=== PATIENT | male | born 1935 | race Caucasian/White ===

== ENCOUNTER 2019-04-21 09:23 | Inpatient (IN) ==
[2019-04-21] MEDS ORDERED: Isovue-370 500 ML BOTTLE IVP ONE (09:50)
[2019-04-21 10:27] LABS: Basophils % 0.5 %; Eosinophils # 0.1 K/mcL (0.0-0.6); Eosinophils % 1.3 %; Hematocrit 45.3 % (37.5-50.1); Hemoglobin 15.1 g/dL (12.9-16.9); Immature Granulocytes % 0.2 % (0-4); Immature Platelets 5.7 % (1.1-6.1); Lymphocytes # 1.3 K/mcL (0.6-4.6); Lymphocytes % 21.9 %; Mean Corpuscular HGB Conc 33.3 g/dL (31.6-35.5); Mean Corpuscular Hemoglobin 31.9 pg (28.0-33.3); Mean Corpuscular Volume 95.8 fL (83.0-100.0); Mean Platelet Volume 10.8 fL (9.4-12.4); Monocytes # 0.5 K/mcL (0.0-1.3); Monocytes % 7.9 %; Platelet Count 117 K/mcL (140-400); Red Blood Count 4.73 M/mcL (4.19-5.50); Segmented Neutrophils % 68.2 %; White Blood Count 5.9 K/mcL (4.3-11.1)
[2019-04-21 10:45] LABS: Alanine Aminotransferase 11 Units/L (7-52); Albumin 3.8 g/dL (3.5-5.7); Albumin/Globulin Ratio 1.5 (1.1-2.2); Alkaline Phosphatase 72 Units/L (34-104); Aspartate Amino Transferase 17 Units/L (13-39); BUN/Creatinine Ratio 18 (6-26); Bilirubin,Total 0.8 mg/dL (0.3-1.0); Blood Urea Nitrogen 22 mg/dL (8-23); Calcium 8.7 mg/dL (8.6-10.3); Carbon Dioxide 24 mEq/L (23-29); Chloride 108 mEq/L (98-107); Globulin 2.6 g/dL (2.4-3.5); Glucose 125 mg/dL (70-105); Osmolality,Calculated 289 (280-300); Potassium 4.4 mEq/L (3.5-5.1); Sodium 137 mEq/L (136-145); Total Protein 6.4 g/dL (6.4-8.9); Troponin I < 0.03 ng/mL (< 0.04); eGFR For African Americans > 60 (> 60); eGFR For Non-African Americans 57 (> 60)
[2019-04-21] MEDS ORDERED: Naloxone 0.4 MG/ML INJ IVP PRN (14:59)
[2019-04-21] MEDS ORDERED: *HR* Heparin 5,000 UNIT/ML VIAL IVP PRN ×2 (17:18)
[2019-04-21] MEDS ORDERED: *HR* Heparin 5,000 UNIT/ML VIAL IVP ONE (17:18)
[2019-04-21] MEDS ORDERED: *HR* Heparin 5,000 UNIT/ML VIAL SQ SCH (18:00)
[2019-04-21 18:24] LABS: Hematocrit 47.6 % (37.5-50.1); Hemoglobin 15.7 g/dL (12.9-16.9); Immature Platelets 6.8 % (1.1-6.1); Mean Corpuscular Hemoglobin 31.8 pg (28.0-33.3); Mean Corpuscular Volume 96.6 fL (83.0-100.0); Mean Platelet Volume 11.2 fL (9.4-12.4); Red Blood Count 4.93 M/mcL (4.19-5.50); Red Cell Distribution Width 12.2 % (11.5-14.5); White Blood Count 7.4 K/mcL (4.3-11.1)
[2019-04-21 18:33] LABS: Heparin anti-factor XA UFH < 0.04 IU/mL (0.30-0.70); INR 1.1; Prothrombin Time 12.5 Seconds (9.4-12.1)
[2019-04-21] MEDS: Heparin 25,000 UNIT/250 ML D5W 25,000 UNIT/250 ML IV.SOLN IVC SCH (20:40)
[2019-04-21] MEDS: Gabapentin 300 MG CAPSULE PO SCH (20:41)
[2019-04-22] MEDS ORDERED: Ondansetron 4 MG/2 ML VIAL IVP ONE (02:43)
[2019-04-22 03:13] LABS: Red Cell Distribution Width 12.2 % (11.5-14.5)
[2019-04-22 03:15] LABS: Hematocrit 49.1 % (37.5-50.1); Hemoglobin 16.6 g/dL (12.9-16.9); Immature Platelets 6.2 % (1.1-6.1); Mean Corpuscular HGB Conc 33.8 g/dL (31.6-35.5); Mean Corpuscular Hemoglobin 32.2 pg (28.0-33.3); Mean Corpuscular Volume 95.3 fL (83.0-100.0); Mean Platelet Volume 11.1 fL (9.4-12.4); Red Blood Count 5.15 M/mcL (4.19-5.50)
[2019-04-22 03:33] LABS: BUN/Creatinine Ratio 19 (6-26); Blood Urea Nitrogen 24 mg/dL (8-23); Calcium 8.9 mg/dL (8.6-10.3); Carbon Dioxide 22 mEq/L (23-29); Chloride 109 mEq/L (98-107); Glucose 83 mg/dL (70-105); Osmolality,Calculated 291 (280-300); Potassium 4.1 mEq/L (3.5-5.1); Sodium 139 mEq/L (136-145); eGFR For African Americans > 60 (> 60); eGFR For Non-African Americans 54 (> 60)
[2019-04-22] MEDS ORDERED: Isosorbide MONOnitrate (24 HR) 30 MG TAB.ER.24H PO ONE (06:56)
[2019-04-22] MEDS ORDERED: Aspirin 81 MG TAB.CHEW ONE (06:56)
[2019-04-22] MEDS: Isosorbide MONOnitrate (24 HR) 30 MG TAB.ER.24H PO SCH (07:10)
[2019-04-22] MEDS: Aspirin 81 MG TAB.CHEW PO SCH (07:10)
[2019-04-22] MEDS: Gabapentin 300 MG CAPSULE PO SCH ×2 (07:10→21:46)
[2019-04-22] MEDS ORDERED: Perflutren Lipid Microsphere 2 ML VIAL ONE (09:37)
[2019-04-22] MEDS: Heparin 25,000 UNIT/250 ML D5W 25,000 UNIT/250 ML IV.SOLN IVC SCH (19:50)
[2019-04-23 00:36] LABS: Basophils % 0.2 %; Eosinophils # 0.1 K/mcL (0.0-0.6); Eosinophils % 1.1 %; Hematocrit 45.1 % (37.5-50.1); Hemoglobin 14.8 g/dL (12.9-16.9); Immature Granulocytes % 0.3 % (0-4); Immature Platelets 7.1 % (1.1-6.1); Lymphocytes # 2.1 K/mcL (0.6-4.6); Lymphocytes % 23.5 %; Mean Corpuscular HGB Conc 32.8 g/dL (31.6-35.5); Mean Corpuscular Hemoglobin 31.8 pg (28.0-33.3); Mean Platelet Volume 11.2 fL (9.4-12.4); Monocytes # 0.8 K/mcL (0.0-1.3); Monocytes % 8.9 %; Neutrophils # 5.8 K/mcL (1.6-8.9); Platelet Count 113 K/mcL (140-400); Red Blood Count 4.65 M/mcL (4.19-5.50); Red Cell Distribution Width 12.4 % (11.5-14.5); White Blood Count 8.8 K/mcL (4.3-11.1)
[2019-04-23 00:40] LABS: Calcium 8.7 mg/dL (8.6-10.3); Potassium 4.3 mEq/L (3.5-5.1)
[2019-04-23] MEDS ORDERED: 0.9 % Sodium Chloride 1,000 ML IVC SCH ×2 (01:00→14:00)
[2019-04-23 01:09] LABS: Platelet Estimate Decreased (Normal)
[2019-04-23 07:02] LABS: BUN/Creatinine Ratio 19 (6-26); Blood Urea Nitrogen 25 mg/dL (8-23); Calcium 8.6 mg/dL (8.6-10.3); Carbon Dioxide 15 mEq/L (23-29); Chloride 108 mEq/L (98-107); Glucose 95 mg/dL (70-105); Osmolality,Calculated 284 (280-300); Potassium 4.7 mEq/L (3.5-5.1); Sodium 135 mEq/L (136-145); eGFR For African Americans > 60 (> 60); eGFR For Non-African Americans 52 (> 60)
[2019-04-23] MEDS: Aspirin 81 MG TAB.CHEW PO SCH (09:13)
[2019-04-23] MEDS: Isosorbide MONOnitrate (24 HR) 30 MG TAB.ER.24H PO SCH (09:13)
[2019-04-23] MEDS: Gabapentin 300 MG CAPSULE PO SCH ×2 (09:13→21:29)
[2019-04-23] MEDS ORDERED: Heparin 1,000 UNITS/500 mL 500 ML ONE ×2 (09:20→10:23)
[2019-04-23] MEDS ORDERED: 0.9 % Sodium Chloride 1,000 ML ONE (09:20)
[2019-04-23] MEDS ORDERED: *HR* Heparin 10,000 UNIT/10 ML VIAL ONE ×2 (09:20→10:03)
[2019-04-23] MEDS ORDERED: Nitroglycerin 1,000 MCG/10 ML VIAL IV ONE (09:21)
[2019-04-23] MEDS ORDERED: ISOVUE-370 200 ML INFUS..BTL ONE (09:21)
[2019-04-23] MEDS ORDERED: *HR* Midazolam HCl 2 MG/2 ML VIAL ONE (09:34)
[2019-04-23] MEDS ORDERED: *HR* FentaNYL (PF) 100 MCG/2 ML VIAL ONE (09:51)
[2019-04-23] MEDS ORDERED: Acetaminophen 325 MG TABLET PO PRN (12:49)
[2019-04-23] MEDS ORDERED: Chloraseptic Spray 177 ML BOTTLE MM PRN (23:41)
[2019-04-24] MEDS: Nitroglycerin 0.4 MG TAB.SUBL SL PRN ×3 (02:18→06:35)
[2019-04-24 03:06] LABS: ABG Base Excess 0 mEq/L (-2 to 3); ABG HCO3 24 mEq/L (21-27); ABG Oxygen Saturation 87 % (95-98); ABG PCO2 34 mmHg (35-45); ABG PH 7.45 pH Units (7.32-7.45); ABG PO2 50 mmHg (85-104); ABG TCO2 25 mEq/L (20-26)
[2019-04-24] MEDS ORDERED: *HR* FentaNYL (PF) 100 MCG/2 ML VIAL IVP ONE (03:06)
[2019-04-24] MEDS ORDERED: 0.9 % Sodium Chloride 1,000 ML IVC ONE (03:12)
[2019-04-24] MEDS ORDERED: Isovue-370 500 ML BOTTLE IVP ONE (03:13)
[2019-04-24 05:17] LABS: BUN/Creatinine Ratio 18 (6-26); Blood Urea Nitrogen 18 mg/dL (8-23); Calcium 8.8 mg/dL (8.6-10.3); Carbon Dioxide 23 mEq/L (23-29); Chloride 108 mEq/L (98-107); Glucose 104 mg/dL (70-105); Osmolality,Calculated 286 (280-300); Potassium 4.1 mEq/L (3.5-5.1); Sodium 137 mEq/L (136-145); eGFR For African Americans > 60 (> 60); eGFR For Non-African Americans > 60 (> 60)
[2019-04-24 05:24] LABS: Basophils % 0.2 %; Eosinophils % 0.1 %; Hematocrit 43.5 % (37.5-50.1); Hemoglobin 14.4 g/dL (12.9-16.9); Immature Granulocytes % 0.6 % (0-4); Immature Platelets 8.7 % (1.1-6.1); Lymphocytes # 1.3 K/mcL (0.6-4.6); Lymphocytes % 11.3 %; Mean Corpuscular HGB Conc 33.1 g/dL (31.6-35.5); Mean Corpuscular Hemoglobin 32.1 pg (28.0-33.3); Mean Corpuscular Volume 96.9 fL (83.0-100.0); Mean Platelet Volume 11.6 fL (9.4-12.4); Monocytes # 1.2 K/mcL (0.0-1.3); Monocytes % 10.2 %; Red Blood Count 4.49 M/mcL (4.19-5.50); Red Cell Distribution Width 12.4 % (11.5-14.5); Segmented Neutrophils % 77.6 %; White Blood Count 11.5 K/mcL (4.3-11.1)
[2019-04-24 05:25] LABS: Neutrophils # 8.9 K/mcL (1.6-8.9); Platelet Count 94 K/mcL (140-400)
[2019-04-24 05:26] LABS: Platelet Estimate Slight Decrease (Normal)
[2019-04-24] MEDS: *HR* Heparin 5,000 UNIT/ML VIAL SQ SCH ×2 (05:28→16:10)
[2019-04-24] MEDS ORDERED: 0.9 % Sodium Chloride 500 ML IVC ONE (05:30)
[2019-04-24] MEDS: Aspirin 81 MG TAB.CHEW PO SCH (07:58)
[2019-04-24] MEDS: Isosorbide MONOnitrate (24 HR) 60 MG TAB.ER.24H PO SCH (07:58)
[2019-04-24] MEDS: Gabapentin 300 MG CAPSULE PO SCH ×2 (07:59→19:55)
[2019-04-24] MEDS ORDERED: Furosemide 40 MG/4 ML VIAL IVP ONE (08:24)
[2019-04-24] MEDS: Ranolazine 500 MG TAB.ER.12H PO SCH ×2 (09:20→19:55)
[2019-04-24] MEDS ORDERED: *HR* Acetaminophen w/Cod 300-30 mg 1 TAB TABLET PO ONE (09:50)
[2019-04-24] MEDS ORDERED: Stomatitis Mixture 5 ML UDC PO ONE (10:07)
[2019-04-24] MEDS ORDERED: *HR* Heparin 10,000 UNIT/10 ML VIAL ONE (13:18)
[2019-04-24] MEDS ORDERED: 0.9 % Sodium Chloride 2,000 ML ONE (13:18)
[2019-04-24] MEDS ORDERED: Heparin 1,000 UNITS/500 mL 500 ML ONE (13:18)
[2019-04-24] MEDS ORDERED: ISOVUE-370 200 ML INFUS..BTL ONE ×2 (13:19→15:02)
[2019-04-24] MEDS ORDERED: Nitroglycerin 1,000 MCG/10 ML VIAL IV ONE (13:19)
[2019-04-24] MEDS ORDERED: *HR* Midazolam HCl 2 MG/2 ML VIAL ONE (14:02)
[2019-04-24] MEDS ORDERED: *HR* FentaNYL (PF) 100 MCG/2 ML VIAL ONE (14:02)
[2019-04-24] MEDS ORDERED: Tirofiban 12.5 MG/250ML 12.5 MG/250 ML BAG ONE (14:33)
[2019-04-24] MEDS ORDERED: 0.9 % Sodium Chloride 500 ML ONE (15:25)
[2019-04-24] MEDS ORDERED: *HR* Nitroprusside 50 MG VIAL IVC ONE (15:25)
[2019-04-24] MEDS ORDERED: Perflutren Lipid Microsphere 1.3 ML in 0.9 % Sodium Chloride 8.7 ML IVP ONE (15:34)
[2019-04-24] MEDS ORDERED: Tirofiban 12.5 MG/250ML 12.5 MG/250 ML BAG IVC SCH (15:45)
[2019-04-24] MEDS: predniSONE 20 MG TABLET PO SCH (16:10)
[2019-04-24 19:51] LABS: BUN/Creatinine Ratio 16 (6-26); Blood Urea Nitrogen 19 mg/dL (8-23); Calcium 8.6 mg/dL (8.6-10.3); Carbon Dioxide 21 mEq/L (23-29); Chloride 106 mEq/L (98-107); Glucose 112 mg/dL (70-105); Osmolality,Calculated 279 (280-300); Potassium 4.2 mEq/L (3.5-5.1); Sodium 133 mEq/L (136-145); eGFR For African Americans > 60 (> 60); eGFR For Non-African Americans 58 (> 60)
[2019-04-25 02:50] LABS: BUN/Creatinine Ratio 16 (6-26); Blood Urea Nitrogen 20 mg/dL (8-23); Calcium 8.5 mg/dL (8.6-10.3); Carbon Dioxide 16 mEq/L (23-29); Chloride 111 mEq/L (98-107); Glucose 123 mg/dL (70-105); Osmolality,Calculated 280 (280-300); Potassium 4.5 mEq/L (3.5-5.1); Sodium 133 mEq/L (136-145); eGFR For African Americans > 60 (> 60); eGFR For Non-African Americans 56 (> 60)
[2019-04-25 03:14] LABS: Hematocrit 39.8 % (37.5-50.1); Mean Corpuscular Volume 94.3 fL (83.0-100.0); Red Blood Count 4.22 M/mcL (4.19-5.50)
[2019-04-25 03:16] LABS: Hemoglobin 13.6 g/dL (12.9-16.9); Immature Platelets 9.4 % (1.1-6.1); Mean Corpuscular HGB Conc 34.2 g/dL (31.6-35.5); Mean Corpuscular Hemoglobin 32.2 pg (28.0-33.3); Mean Platelet Volume 11.2 fL (9.4-12.4); Red Cell Distribution Width 12.5 % (11.5-14.5); White Blood Count 12.2 K/mcL (4.3-11.1)
[2019-04-25] MEDS: *HR* Heparin 5,000 UNIT/ML VIAL SQ SCH ×2 (06:08→17:07)
[2019-04-25] MEDS: Aspirin 81 MG TAB.CHEW PO SCH (08:50)
[2019-04-25] MEDS: Gabapentin 300 MG CAPSULE PO SCH ×2 (08:50→19:58)
[2019-04-25] MEDS: Isosorbide MONOnitrate (24 HR) 60 MG TAB.ER.24H PO SCH (08:50)
[2019-04-25] MEDS: predniSONE 20 MG TABLET PO SCH (08:51)
[2019-04-25] MEDS: Ranolazine 500 MG TAB.ER.12H PO SCH (09:52)
[2019-04-25] MEDS ORDERED: Mag Hydrox/Al Hydrox/Simeth 30 ML UDC PO PRN (11:18)
[2019-04-25] MEDS ORDERED: DilTIAZem 50 MG in 0.9 % Sodium Chloride 40 ML IVC SCH (18:24)
[2019-04-25] MEDS: DilTIAZem 50 MG in 0.9 % Sodium Chloride 40 ML IVC SCH ×2 (18:25→18:47)
[2019-04-25] MEDS: Metoprolol XL (24 HR) Succ 50 MG TAB.ER.24H PO SCH (18:25)
[2019-04-25] MEDS ORDERED: Amiodarone Premix 150 MG/100 ML BAG IVPB ONE (19:12)
[2019-04-25] MEDS ORDERED: Amiodarone Premix 360 MG/200 ML BAG IVC ONE (19:12)
[2019-04-25] MEDS ORDERED: *HR* Heparin 5,000 UNIT/ML VIAL IVP ONE (19:13)
[2019-04-25] MEDS ORDERED: *HR* Heparin 5,000 UNIT/ML VIAL IVP PRN ×2 (19:13)
[2019-04-25] MEDS ORDERED: Heparin 25,000 UNIT/250 ML D5W 25,000 UNIT/250 ML IV.SOLN IVC SCH (19:15)
[2019-04-25] MEDS ORDERED: Amiodarone Premix 360 MG/200 ML BAG IVC SCH (19:15)
[2019-04-25 19:29] LABS: Magnesium 1.9 mg/dL (1.6-2.6)
[2019-04-25 19:39] LABS: Thyroid Stimulating Hormone 3.147 mcIU/mL (0.340-5.600)
[2019-04-25 19:43] LABS: Mean Platelet Volume 11.6 fL (9.4-12.4); Red Cell Distribution Width 12.3 % (11.5-14.5)
[2019-04-25 19:45] LABS: Hematocrit 38.2 % (37.5-50.1); Hemoglobin 12.7 g/dL (12.9-16.9); Immature Platelets 8.1 % (1.1-6.1); Mean Corpuscular HGB Conc 33.2 g/dL (31.6-35.5); Mean Corpuscular Hemoglobin 31.7 pg (28.0-33.3); Mean Corpuscular Volume 95.3 fL (83.0-100.0); Red Blood Count 4.01 M/mcL (4.19-5.50); White Blood Count 9.8 K/mcL (4.3-11.1)
[2019-04-25 19:50] LABS: INR 1.3; Prothrombin Time 15.1 Seconds (9.4-12.1)
[2019-04-25 19:51] LABS: Heparin anti-factor XA UFH < 0.04 IU/mL (0.30-0.70)
[2019-04-26 03:51] LABS: Hemoglobin 12.5 g/dL (12.9-16.9)
[2019-04-26 03:53] LABS: Hematocrit 37.4 % (37.5-50.1); Immature Platelets 8.9 % (1.1-6.1); Mean Corpuscular HGB Conc 33.4 g/dL (31.6-35.5); Mean Corpuscular Hemoglobin 31.9 pg (28.0-33.3); Mean Corpuscular Volume 95.4 fL (83.0-100.0); Red Blood Count 3.92 M/mcL (4.19-5.50); Red Cell Distribution Width 12.4 % (11.5-14.5); White Blood Count 9.1 K/mcL (4.3-11.1)
[2019-04-26 04:08] LABS: BUN/Creatinine Ratio 20 (6-26); Blood Urea Nitrogen 27 mg/dL (8-23); Calcium 8.2 mg/dL (8.6-10.3); Carbon Dioxide 20 mEq/L (23-29); Chloride 104 mEq/L (98-107); Glucose 115 mg/dL (70-105); Osmolality,Calculated 282 (280-300); Potassium 3.6 mEq/L (3.5-5.1); Sodium 133 mEq/L (136-145); eGFR For African Americans > 60 (> 60); eGFR For Non-African Americans 51 (> 60)
[2019-04-26] MEDS: Isosorbide MONOnitrate (24 HR) 60 MG TAB.ER.24H PO SCH (08:08)
[2019-04-26] MEDS: Gabapentin 300 MG CAPSULE PO SCH (08:08)
[2019-04-26] MEDS: Aspirin 81 MG TAB.CHEW PO SCH (08:08)
[2019-04-26] MEDS: Metoprolol XL (24 HR) Succ 50 MG TAB.ER.24H PO SCH (08:08)
[2019-04-26 15:41] VITALS: BP 110/76
== END 2019-04-26 17:52 | disposition home or self-care (01) | DRG 246 ==
LOC: EMEROOARM 09:23 → 3BNU 09:23 → SUATTDRO 04-22 19:55 → 2NNU 04-23 11:45
PROVIDERS: ADMIT Family Medicine; ATTEND Internal Medicine

== ENCOUNTER 2020-11-08 06:27 | Inpatient (IN) ==
[2020-11-08 07:45] LABS: Eosinophils % 2.9 %; Red Cell Distribution Width 12.4 % (11.5-14.5)
[2020-11-08 07:47] LABS: Basophils % 0.1 %; Eosinophils # 0.3 K/mcL (0.0-0.6); Hematocrit 44.1 % (37.5-50.1); Immature Granulocytes % 0.6 % (0-4); Immature Platelets 10.4 % (1.1-6.1); Lymphocytes # 1.3 K/mcL (0.6-4.6); Lymphocytes % 14.4 %; Mean Corpuscular Hemoglobin 31.4 pg (28.0-33.3); Mean Corpuscular Volume 92.5 fL (83.0-100.0); Mean Platelet Volume 11.9 fL (9.4-12.4); Monocytes # 0.6 K/mcL (0.0-1.3); Monocytes % 6.2 %; Platelet Count 143 K/mcL (140-400); Red Blood Count 4.77 M/mcL (4.19-5.50); Segmented Neutrophils % 75.8 %; White Blood Count 9.3 K/mcL (4.3-11.1)
[2020-11-08 07:54] LABS: Alanine Aminotransferase 26 Units/L (7-52); Albumin 3.1 g/dL (3.5-5.7); Albumin/Globulin Ratio 0.9 (1.1-2.2); Alkaline Phosphatase 58 Units/L (34-104); Aspartate Amino Transferase 39 Units/L (13-39); BUN/Creatinine Ratio 26 (6-26); Bilirubin,Direct 0.3 mg/dL (0.0-0.2); Bilirubin,Indirect 0.8 mg/dL (0.0-1.0); Bilirubin,Total 1.1 mg/dL (0.3-1.0); Blood Urea Nitrogen 36 mg/dL (8-23); Calcium 8.7 mg/dL (8.6-10.3); Carbon Dioxide 27 mEq/L (23-29); Chloride 100 mEq/L (98-107); Globulin 3.6 g/dL (2.4-3.5); Glucose 121 mg/dL (70-105); Osmolality,Calculated 290 (280-300); Potassium 3.5 mEq/L (3.5-5.1); Sodium 135 mEq/L (136-145); Total Protein 6.7 g/dL (6.4-8.9); eGFR For African Americans > 60 (> 60); eGFR For Non-African Americans 50 (> 60)
[2020-11-08 08:00] LABS: Neutrophils # 7.1 K/mcL (1.6-8.9)
[2020-11-08 08:17] LABS: INR 1.4; Prothrombin Time 15.3 Seconds (9.4-12.1)
[2020-11-08 08:20] LABS: Activated Partial Thrombo Time 30.7 Seconds (26.0-36.0)
[2020-11-08] MEDS ORDERED: Isovue-370 500 ML BOTTLE IVP ONE (08:28)
[2020-11-08] MEDS ORDERED: Aspirin 325 MG TABLET PO ONE (09:26)
[2020-11-08] MEDS ORDERED: Naloxone 0.4 MG/ML INJ IVP PRN (10:21)
[2020-11-08] MEDS ORDERED: Ondansetron 4 MG/2 ML VIAL IVP PRN (10:26)
[2020-11-08] MEDS ORDERED: Acetaminophen 325 MG TABLET PO PRN (10:26)
[2020-11-08] MEDS ORDERED: levoFLOXacin 750 MG/150 ML 750 MG/150 ML BAG IVPB SCH (12:30)
[2020-11-08] MEDS ORDERED: Perflutren Lipid Microsphere 1.3 ML in 0.9 % Sodium Chloride 8.7 ML IVP PRN (14:27)
[2020-11-08] MEDS ORDERED: Gabapentin 400 MG CAPSULE PO SCH (22:45)
[2020-11-09] MEDS: *HR* Enoxaparin 40 MG/0.4 ML SYRINGE SQ SCH (06:03)
[2020-11-09] MEDS ORDERED: *HR* Enoxaparin 30 MG/0.3 ML SYRINGE SQ SCH (07:00)
[2020-11-09] MEDS: Dexamethasone Sodium Phos/PF 10 MG/ML VIAL IVP SCH (12:06)
[2020-11-09] MEDS: Ipratropium 1 PUFF INHALER IH SCH ×3 (16:26→23:33)
[2020-11-09] MEDS: Gabapentin 300 MG CAPSULE PO SCH ×2 (20:31)
[2020-11-09] MEDS ORDERED: Gabapentin 300 MG CAPSULE PO ONE (21:00)
[2020-11-09] MEDS ORDERED: Gabapentin 400 MG CAPSULE PO SCH (21:00)
[2020-11-10 02:32] LABS: Basophils % 0.3 %; Eosinophils % 0.2 %; Hematocrit 44.3 % (37.5-50.1); Immature Granulocytes % 0.9 % (0-4); Lymphocytes # 0.7 K/mcL (0.6-4.6); Mean Corpuscular HGB Conc 33.9 g/dL (31.6-35.5); Mean Corpuscular Volume 91.5 fL (83.0-100.0); Mean Platelet Volume 11.9 fL (9.4-12.4); Monocytes # 0.5 K/mcL (0.0-1.3); Platelet Count 195 K/mcL (140-400); Red Blood Count 4.84 M/mcL (4.19-5.50); Red Cell Distribution Width 12.5 % (11.5-14.5); Segmented Neutrophils % 86.6 %; White Blood Count 10.3 K/mcL (4.3-11.1)
[2020-11-10 02:48] LABS: BUN/Creatinine Ratio 30 (6-26); Blood Urea Nitrogen 33 mg/dL (8-23); Calcium 8.5 mg/dL (8.6-10.3); Carbon Dioxide 21 mEq/L (23-29); Chloride 106 mEq/L (98-107); Glucose 163 mg/dL (70-105); Magnesium 2.2 mg/dL (1.6-2.6); Osmolality,Calculated 293 (280-300); Potassium 3.8 mEq/L (3.5-5.1); Sodium 136 mEq/L (136-145); eGFR For African Americans > 60 (> 60); eGFR For Non-African Americans > 60 (> 60)
[2020-11-10] MEDS: Ipratropium 1 PUFF INHALER IH SCH ×5 (04:32→20:31)
[2020-11-10] MEDS: *HR* Enoxaparin 40 MG/0.4 ML SYRINGE SQ SCH (04:54)
[2020-11-10] MEDS: Aspirin 81 MG TAB.CHEW PO SCH (08:25)
[2020-11-10] MEDS: Dexamethasone Sodium Phos/PF 10 MG/ML VIAL IVP SCH (08:25)
[2020-11-10] MEDS: Metoprolol XL (24 HR) Succ 50 MG TAB.ER.24H PO SCH (08:26)
[2020-11-10] MEDS: Isosorbide MONOnitrate (24 HR) 60 MG TAB.ER.24H PO SCH (08:26)
[2020-11-10] MEDS ORDERED: levoFLOXacin 750 MG/150 ML 750 MG/150 ML BAG IVPB SCH (13:00)
[2020-11-10] MEDS: levoFLOXacin 750 MG/150 ML 750 MG/150 ML BAG IVPB SCH (13:32)
[2020-11-10] MEDS ORDERED: Gabapentin 400 MG CAPSULE PO SCH (21:00)
[2020-11-11] MEDS: Ipratropium 1 PUFF INHALER IH SCH ×5 (00:08→16:53)
[2020-11-11 02:44] LABS: Hematocrit 46.7 % (37.5-50.1); Hemoglobin 15.1 g/dL (12.9-16.9); Mean Corpuscular HGB Conc 32.3 g/dL (31.6-35.5); Mean Corpuscular Hemoglobin 30.9 pg (28.0-33.3); Mean Corpuscular Volume 95.5 fL (83.0-100.0); Mean Platelet Volume 12.1 fL (9.4-12.4); Platelet Count 143 K/mcL (140-400); Red Blood Count 4.89 M/mcL (4.19-5.50); White Blood Count 12.1 K/mcL (4.3-11.1)
[2020-11-11 03:12] LABS: BUN/Creatinine Ratio 26 (6-26); Blood Urea Nitrogen 31 mg/dL (8-23); Calcium 8.3 mg/dL (8.6-10.3); Carbon Dioxide 17 mEq/L (23-29); Chloride 107 mEq/L (98-107); Glucose 114 mg/dL (70-105); Osmolality,Calculated 291 (280-300); Potassium 4.6 mEq/L (3.5-5.1); Sodium 137 mEq/L (136-145); eGFR For African Americans > 60 (> 60); eGFR For Non-African Americans 58 (> 60)
[2020-11-11] MEDS: *HR* Enoxaparin 40 MG/0.4 ML SYRINGE SQ SCH (05:39)
[2020-11-11 07:41] VITALS: TEMP 97.9
[2020-11-11] MEDS: Saliva Stimulant 44.3ml BOTTLE PO SCH ×3 (08:49→14:57)
[2020-11-11] MEDS: Artificial Tears SOLN 15 ML BOTTLE BOTH EYES SCH ×2 (08:49→13:48)
[2020-11-11] MEDS: Aspirin 81 MG TAB.CHEW PO SCH (08:50)
[2020-11-11] MEDS: Dexamethasone Sodium Phos/PF 10 MG/ML VIAL IVP SCH (08:50)
[2020-11-11] MEDS: Metoprolol XL (24 HR) Succ 50 MG TAB.ER.24H PO SCH (08:50)
[2020-11-11] MEDS: Saline Nasal Spray 44 ML BOTTLE NS SCH ×2 (08:50→13:48)
[2020-11-11] MEDS: Isosorbide MONOnitrate (24 HR) 60 MG TAB.ER.24H PO SCH (08:51)
[2020-11-11] MEDS ORDERED: Multivit/Ca/Min/Fe/FA 1 TAB TABLET PO SCH (09:00)
[2020-11-11] MEDS ORDERED: Cholecalciferol (D-3) 1,000 UNIT (25MCG) TABLET PO SCH (09:00)
[2020-11-11 11:41] VITALS: BP 115/57; PULSE 81
[2020-11-11 11:46] VITALS: O2SAT 94
[2020-11-11] MEDS: levoFLOXacin 750 MG/150 ML 750 MG/150 ML BAG IVPB SCH (13:48)
== END 2020-11-11 17:44 | disposition home health service (06) | DRG 177 ==
LOC: 2NENU 06:27 → EMEROOARM 06:27 → SUATTDRO 10:12 → 2NENU 11:32 → SUATTDRO 11-09 13:43
PROVIDERS: ADMIT Pharmacist; ATTEND Internal Medicine